=== PATIENT | female | born 1985 | race Caucasian/White ===

== ENCOUNTER 2024-12-12 10:45 | Observation (INO) ==
--- NOTE | 2024-11-29 12:11 | Anesthesiology Consultation ---
Date of Service November 29, 2024 Assessment & Plan Chart Review Chart Review: Acceptable Risk for Surgery and Patient NOT seen in Pre Admission Testing Consults Requested none History Surgery Operation Date: 12/12/24 12:00 Proposed Procedures p Left Knee Arthroscopy, Open Osteocohondral Allograft Transplant - Jose Cody MD Height/Weight Height: 5 ft 1 in Weight: 58.967 kg Allergies Allergy/AdvReac Type Severity Reaction Status Date / Time egg AdvReac Severe Gastrointestinal Verified 11/28/24 15:20 Upset gluten AdvReac Severe Gastrointestinal Verified 11/28/24 15:20 Upset lactase [From Dairy Aid] AdvReac Severe Gastrointestinal Verified 11/28/24 15:20 Upset Medications Home Medications Medication Instructions Recorded Confirmed Last Taken omeprazole 40 mg capsule,delayed 40 mg PO QA 02/10/24 11/28/24 Unknown release valacyclovir 500 mg tablet 500 mg PO QA 02/10/24 11/28/24 Unknown 5-hydroxytryptophan (5-HTP) 100 mg 100 mg PO [facility] [place] 11/28/24 11/28/24 Unknown capsule (5-HTP) berberine chloride 500 mg capsule 500 mg PO QA 11/28/24 11/28/24 Unknown calcium 500 mg 1 tab PO HS 11/28/24 11/28/24 Unknown (carb,gluconate)-magnesium 250 mg (gluc,oxide) tablet (Calcium Magnesium) elderberry fruit 350 mg capsule 350 mg PO 11/28/24 11/28/24 Unknown lactobacillus combination no.4 3 3,000 mmu cells PO QA 11/28/24 11/28/24 Unknown billion cell capsule (Probiotic) Past Medical History Medical History Hx of syncope had a positive tilt table test, was told to increase electrolyte intake and salt intake. had a f/u with a tank car repairer ~2017 in [place]. no further need to see and is doing well. History of COVID-19 Fall 2019: cold symptoms and chest congestion. no hospitalization, resolved. PONV (postoperative nausea and vomiting) Iron deficiency anemia chronic Anxiety controlled with OTC supplements Asthma exercise induced - rarely has an issue. Past Family History Family History (Updated 11/28/24 @ 15:30 by Sugey Hope RN) Mother Breast cancer Grandmother (Maternal) No problems noted. Uncle Colorectal cancer Family/Other Breast cancer Other No family history of adverse response to anesthesia Denies family history of Ovarian cancer Prostate cancer Myocardial infarction Uterine cancer Past Surgical History Surgical History History of esophagogastroduodenoscopy (EGD) History of colonoscopy S/P ACL surgery Left S/P x1 S/P cholecystectomy Social History Smoking Status: Former smoker Do You Dip or Chew Tobacco: No Smoking End Date: quit 11 years ago Hx Alcohol Use: Yes (Socially) Hx Substance Use: No substance use type: does not use
--- NOTE | 2024-12-06 11:14 | Communication Note ---
Date of Service: December 06, 2024 - Patient contacted PAT requesting reviewing medication instructions and adding lysine to list. This was updated in EMR. She was advised she needs to stop lysine, elderberry fruit, 5-HTP, berberine supplements now, cannot take probiotic morning of surgery and otherwise can continue medication as listed in chart. She verbalized understanding and denied additional questions or concerns.
[~2024-12-12 10:45] MED LIST: BUPIVACAINE 0.25% PF 30 ML VIAL ONE; BUPIVACAINE 0.5 % 5 MG/1 ML PF 10ML VIAL ONE; DEXAMETHASONE SOD INJ 4 MG/ML VIAL ONE; EPINEPHrine INJ 1 MG/ML AMP ONE
--- NOTE | 2024-12-12 11:20 | History & Physical Bridge Note ---
Date of Service December 12, 2024 History & Physical Bridge Note I have examined the patient, reviewed the History & Physical and in the interval since the performance of the History & Physical I have noted the following changes of clinical significance: no changes noted
[2024-12-12] MEDS: LACTATED RINGER'S 1,000 ML IV SCH ×2 (11:34→11:38)
[2024-12-12] MEDS ORDERED: ONDANSETRON INJ 2 MG/ML 2 ML VIAL ONE ×2 (11:54→16:54)
[2024-12-12] MEDS ORDERED: PROPOFOL IV EMULSION 10 MG/ML 20 ML VIAL IV ONE (11:54)
[2024-12-12] MEDS ORDERED: fentaNYL citrate PF 100 MCG/2 ML VIAL ONE ×3 (11:54→16:32)
[2024-12-12] MEDS ORDERED: LIDOCAINE 2% 2 ML VIAL/AMP(20MG/ML) INFIL ONE (11:54)
[2024-12-12] MEDS ORDERED: DEXAMETHASONE SOD INJ 4 MG/ML VIAL ONE (11:54)
[2024-12-12] MEDS ORDERED: MIDAZOLAM HCL 1 MG/ML 2ML VIAL ONE (11:55)
[2024-12-12] MEDS ORDERED: ONDANSETRON INJ 2 MG/ML 2 ML VIAL IV PRN ×2 (12:05→17:52)
[2024-12-12] MEDS ORDERED: PROMETHAZINE HCL 6.25 MG in SODIUM CHLORIDE 0.9% 50 ML IV PRN (12:05)
[2024-12-12] MEDS ORDERED: ATROPINE SULFATE 0.1 MG/ML 10ML SYR IV PRN ×2 (12:05→17:53)
[2024-12-12] MEDS ORDERED: fentaNYL citrate PF 100 MCG/2 ML VIAL IV PRN ×2 (12:05→17:52)
[2024-12-12] MEDS ORDERED: ePHEDrine sulfate 50 MG/ML AMP IV PRN (12:05)
[2024-12-12] MEDS: SCOPOLAMINE 1 MG/72 HR TDSY PATCH TD ONE ×2 (12:06)
[2024-12-12] MEDS: ceFAZolin 2000MG 2,000 MG/15 ML SYR IV SCH ×2 (13:32→23:19)
[2024-12-12] MEDS: TRANEXAMIC ACID / 0.7% NACL 1000MG/100ML BAG IV ONE (13:35)
[2024-12-12] MEDS ORDERED: KETAMINE HCL 10MG/ML SYR ONE (13:51)
[2024-12-12] MEDS ORDERED: ceFAZolin 330 MG/ML 1 GM VIAL ONE (15:44)
[2024-12-12] MEDS: ceFAZolin 2000MG 2,000 MG/15 ML SYR IV ONE (15:45)
[2024-12-12] MEDS: LIDOCAINE 1%/EPINEPHRINE 1:100,000 50 ML VIAL ONE (16:47)
[2024-12-12] MEDS: EpINEphrine HCL INJ 1 MG/ML 1ML SYRINGE IR ONE (16:48)
[2024-12-12] MEDS ORDERED: KETOROLAC 30 MG/ML VIAL ONE (16:54)
[2024-12-12] MEDS: ROPIVACAINE 0.5% 5 MG/ML 30 ML VIAL ONE (17:04)
[2024-12-12] MEDS ORDERED: oxyCODONE HCL IR 5 MG TAB (IMMEDIATE RELEASE) PO PRN (17:20)
[2024-12-12] MEDS ORDERED: NALOXONE HCL 0.4 MG/1 ML VIAL/CARP IV PRN (17:20)
[2024-12-12] MEDS ORDERED: ALUMINUM/MAGNESIUM SUSP 30 ML UDC PO PRN (17:20)
[2024-12-12] MEDS ORDERED: METOCLOPRAMIDE HCL INJ 5 MG/ML 2 ML VIAL IV PRN (17:20)
[2024-12-12] MEDS ORDERED: diphenhydrAMINE 50 MG/ML VIAL IV PRN (17:20)
[2024-12-12] MEDS ORDERED: MAGNESIUM HYDROXIDE SUSP 30 ML UDC PO PRN (17:20)
[2024-12-12] MEDS ORDERED: HYDROmorphone INJ 0.5 MG/0.5 ML SYR IV PRN (17:20)
[2024-12-12] MEDS ORDERED: bisacodyL 10 MG SUPP PR PRN (17:20)
--- NOTE | 2024-12-12 17:27 | Operative Report ---
Post Operative Report Pre & Post Diagnosis Operation Date: 12/12/24 12:40 Pre-Op Diagnosis: Left Knee Aneterior Cruciate Ligament graft tear, osteochondral lesion of the lateral femoral condyle, retained orthopedic hardware Post-Op Diagnosis: Left Knee Aneterior Cruciate Ligament graft tear, osteochondral lesion of the lateral femoral condyle, retained orthopedic hardware I identified the patient and participated in the time-out.: Yes Procedure Operation Date: 12/12/24 12:40 Actual Procedures p Left Knee Arthroscopy, Anterior Cruciate Ligament Reconstruction, with Bone Tendon Bone Autograft, Open Osteochondral Allograft Transplant, Hardware Removal(Left) 22 modifier should be added to the ACL CPT code due to the extra time and difficulty associated with a revision ACL surgery- Jose Cody MD Surgeon Jose Cody MD Strip Deburrer Dylan Quiroz DO, DJ Clark and Rangel Bryson PA-C. Estimated Blood Loss 50 Findings Consistent with Post-Op Diagnosis Specimens None Anesthesia Type General Regional Complications none Disposition Disposition: Recovery Room Indications 38-year-old female, injured her self playing dodgeball back in September 2024. She felt a pop in her knee. She has undergone a previous ACL reconstruction 25 years ago. X-ray and MRI were obtained. On the x-ray she had evidence of prior ACL reconstruction with a staple in her tibia. Femoral tunnel was located anterior superiorly and vertically. There was minimal tunnel widening measured at less than 12 mm. MRI was obtained. This showed an osteochondral lesion of the lateral femoral condyle. Her exam was notable for positive Rajinder's test and lateral joint line tenderness. I had a long discussion with her about her diagnosis and treatment options. She was a candidate for revision ACL reconstruction with bone patellar tendon bone autograft, and open osteochondral allograft transplant, and hardware removal. I reviewed all the risks and benefits of surgery, alternatives, and expected outcomes. She elected to proceed. All questions were answered. Informed consent was signed. Description of Procedure Patient was identified in the preoperative holding area where her surgical site was marked. She was given an adductor canal block by anesthesia then brought back to the operating room where she was placed on the operating room table and general anesthesia was administered. Exam under anesthesia was then performed. Patient's range of motion was approximately 3 to 120 degrees without manipulation. However with manipulation small pops could be felt and I was able to get her through a full range of motion 0 to 140 degrees. Rajinder's was positive grade 2B. She was stable to varus and valgus at 30 degrees. Negative posterior drawer test. She was then prepped and draped in the usual sterile fashion. Prior to incision a multidisciplinary timeout was called. All in the room were in agreement. I began by opening up her previous hamstring incision then extending the incision transversely to the lateral aspect of the tibial tubercle then proximally to the midpoint of the patella along the lateral border of the patellar tendon. I dissected down to subcutaneous tissues to the level of the fascia. [place] identified in the proximal tibia. This was dissected out with electrocautery. Combination of osteotomes were used to try to get around the stable. Staple was very securely fixed. Eventually I was able to get a vice peanut separator on the staple and tapped this out. Tibial tunnel exit was then visible. Next, #11 blade was used to make a anterolateral arthroscopic portal incision. Arthroscope was inserted in the suprapatellar pouch. Anterior medial portal was created under direct visualization. A diagnostic arthroscopy was performed revealing the below findings. 1. Suprapatellar pouch and medial lateral gutter showed some scar tissue consistent with her knee stiffness which was slightly bleeding secondary to release due to the manipulation under anesthesia. 2. Undersurface the patella was normal. 3. The trochlea was normal. 4. Medial femoral condyle was normal. 5. Notch showed the ACL to be torn with some resorption of the proximal aspect of the graft. Tibial stump of the graft was scarred to the anterior horn of the lateral meniscus. PCL was intact. 6. Medial compartment showed the medial meniscus to be intact. There was some calcific substances noted on the undersurface of the body of the medial meniscus as well as the free edge on the posterior horn. Grade I chondromalacia of the medial femoral condyle. Medial tibial plateau was normal. 7. Lateral compartment showed the lateral meniscus to be intact with some calcific surface attachments about 2 mm in the posterior horn of the lateral meniscus superior surface. Having completed our diagnostic arthroscopy I then introduced a meniscal biter which was used to dissect the scar tissue from the ACL off of the lateral meniscus anterior horn taking great care to not disturb the root attachment. The ACL remnant was then debrided with arthroscopic shaver. Small notchplasty was performed of the lateral wall. Electrocautery was used to remove soft tissue and visualize the old femoral tunnel. Intercondylar ridge was identified and I felt that I could place her femoral tunnel more anatomically away from her previous femoral tunnel without the tunnels converging. I then inserted a 2.4 mm guidewire up the tibial tunnel into the joint. This was clipped with a Wendy. I then hand reamed starting with an [address] re[address] the way up to a #11 reamer. Curette was used to remove soft tissue. The arthroscope was placed up into the tunnel and we confirmed that there was no longer any soft tissue. Plug was then placed in the tibial tunnel. Next, I harvested a bone patellar tendon bone autograft. The peritenon was split longitudinally in the midportion of the tendon and reflected medially and laterally to expose the medial and lateral edges of the tendon. A 10 mm wide strip of central portion of patellar tendon was harvested with a #10 blade. The knee was then brought into full extension. Bone blocks were taken off the patella and tibial tubercle and the graft was prepared on the back table. It sized to a 9 mm graft on the femoral side and an 11 mm graft on the tibial side. BTB tight rope was attached to the femoral side. 18-gauge wire was placed on the tibial bone block. Graft was covered with a wet sponge. Next, the arthroscope was moved to the anterior medial portal. Femoral drill guide was placed through the anterolateral portal. Small stab incision was made on the anterior lateral aspect of the distal femur to allow the guide to come down on the bone. I set the guide at 120 degrees. Guidepin was then drilled down into the knee. I had to make a slight adjustment to the guidepin in order to optimize his position and avoid her previous femoral tunnel. Once this was completed metal guide sleeve was tapped down and the 2.4 guidewire was removed. The Arthrex flip cutter 3 was opened up and drilled down into the knee. This was opened and 9 mm. I then retrodrilled to a depth of approximately 20 mm. I was very happy with her tunnel position which avoided her previous tunnel as planned. A fiber snare was then placed down into the knee. This was grasped out through the tibial tunnel to use for graft passage. Next, the BTB autograft was brought up onto the surgical field. The fiber snare was used to pass the BTB tight rope. The Endobutton was secured on the lateral cortex of the femur. Once this was complete, we pulled on the tight rope sutures to advance the femoral bone block up into the femoral tunnel. Excellent fixation was obtained. Next, the knee was placed in full hyperextension. Then a wire was placed along the bone block side of the graft. I dilated up to a size 10 mm screw. 10 mm x 28 mm Arthrex peek interference screw was then placed on the bone side of the graft. Excellent fixation was obtained. The arthroscope was placed back into the knee. Knee was brought through full range of motion and there was no impingement of the graft on the intercondylar notch. I was happy with the tension on the graft. Arthroscopic images were obtained and the arthroscope was then removed from the joint. Next, we turned our attention to the open osteochondral allograft transplant. The lateral portal incision was extended through the fascia along the lateral side of the patellar tendon taking great care to avoid the underlying lateral femoral condyle and the anterior horn of the lateral meniscus. We carried the incision along the inferior lateral border of the patella for distance of approximately 1 cm. This allowed good visualization of lateral femoral condyle once the retractors were placed. The osteochondral lesion of the lateral femoral condyle was visualized. A size 15 mm diameter sizer at the appropriate coverage of the area of abnormal cartilage. There was some depression of the condyle along both medial and lateral margins so was not perfectly rounded. The sizer was centered on the lesion then the guide wire was drilled. I scored the cartilage with a 15 mm scoring device. I then drilled to a depth of approximately 9 mm. We took our measurements off of the dilator. These were 9 mm anteriorly and posteriorly and 7.5 mm medially and laterally. These were recorded on the back table. Our osteochondral allograft Ozzie condyle had been opened up at the beginning of the case in order to thaw and was now ready to be prepared. On the back table was secured using the Arthrex [place] o[place] graft cannon. The size 15 mm guide was used to find an appropriate position on the allograft Ozzie condyle. The guide was then tightened down. Coring reamer was then drilled to a depth of approximately 12 to 13 mm. Saw was then used to free the allograft up. Once this was complete we made our martinez on the bony side of the allograft. A saw was used to cut the allograft plug to size. The graft was then diluted along its edges. It was then irrigated with pulse lavage to remove any bone marrow elements. We re-measured the size of our allograft plug and we were happy with it. We then brought the allograft plug up onto the surgical field. The recipient site was irrigated out with copious amounts normal saline then dried. The allograft plug was then tamped down into position. Graft was slightly prominent along the medial lateral sides but this was less than 1.5 mm which was acceptable. We had a perfectly flush surface anteriorly and posteriorly which I was very happy with. The knee was brought through full range of motion there was no catching or impingement of the graft. At this point the near was irrigated out with a pulse lavage. The arthrotomy was closed using a 0 Vicryl suture. Bone graft was packed into the patella using a bone tamp. Skin was then closed using 3-0 Vicryl sutures in the deep dermis and 3-0 Monocryl in the skin. Steri-Strips and Dermabond were applied. 30 cc of half percent Naropin was injected throughout the wounds for postoperative pain control. Sterile dressings were applied. Patient was then awoke from anesthesia and transferred recovery room in stable condition. Postoperative course: Patient will be admitted to the hospital overnight for pain control and to receive perioperative IV antibiotics. She will work with physical therapy tomorrow. We will encourage immediate full range of motion. She is nonweightbearing for the next 6 weeks on crutches. Aspirin for DVT prophylaxis. I attest to the content of the Intraoperative Record and any orders documented therein. Any exceptions are noted below.
--- NOTE | 2024-12-12 17:36 | Operative Report ---
Post Operative Report Pre & Post Diagnosis Operation Date: 12/12/24 12:40 Pre-Op Diagnosis: Left Knee Aneterior Cruciate Ligament Sprain Post-Op Diagnosis: Left Knee Aneterior Cruciate Ligament Sprain I identified the patient and participated in the time-out.: Yes Procedure Operation Date: 12/12/24 12:40 Actual Procedures p Left Knee Arthroscopy, Anterior Cruciate Ligament Reconstruction, with Bone Tendon Bone Autograft, Open Osteochondral Allograft Transplant, Hardware Removal(Left) - Jose Cody MD Surgeon Jose Cody MD Oriental Rug Repairer Dylan Quiroz DO, WYATT Hardy and Rangel Bryson PA-C. Estimated Blood Loss 50 Findings Consistent with Post-Op Diagnosis Specimens None Description of Procedure Patient was brought to the operative suite where she underwent anesthesia. The left knee was examined under anesthesia. The left lower extremity was prepped and draped in usual sterile fashion. A surgical timeout was performed. The patient underwent a left knee arthroscopy with revision anterior cruciate ligament reconstruction utilizing bone patellar tendon bone autograft, arthrotomy with lateral femoral condyle osteochondral allograft transplant, hardware removal. Please see Dr. Cody's operative report for full details. I was present and assisted with patient positioning, limb positioning, soft tissue retraction, hemostasis, hardware removal, anterior cruciate ligament reconstruction, osteochondral allograft transplant, wound closure, postoperative dressing placement. The patient was taken to the recovery room in stable condition. I attest to the content of the Intraoperative Record and any orders documented therein. Any exceptions are noted below.
[2024-12-12] MEDS: PROMETHAZINE HCL 6.25 MG in SODIUM CHLORIDE 0.9% 50 ML IV PRN (17:37)
--- NOTE | 2024-12-12 17:50 | XRay Report ---
Clinical History: Postoperative examination 2 views of the left knee are submitted for review. Comparison is made with the prior examination dated 10/24/2024 Findings: Air is seen within the joint space, consistent with recent surgery. Postsurgical changes are seen of anterior cruciate ligament reconstruction. There is a metallic plate along the lateral aspect of the distal femoral metaphysis that is not contacting the bone. There is an unchanged suspected subacute or old fracture of the lateral tibial plateau No subluxation or dislocation is seen. No significant arthritic changes are noted. No other osseous abnormality is identified. There are no radiopaque foreign bodies. Impression: Apparent ACL reconstruction. There is a metallic plate lateral to the distal femoral metaphysis that is not attached to the bone. Clinical correlation is recommended as to whether this is satisfactory Electronically signed by John Moulton 12-12-2024 5:50 PM
[2024-12-12] MEDS: DROPERIDOL 5 MG/2 ML VIAL IV STA (17:55)
[2024-12-12] MEDS: PROMETHAZINE HCL INJ 25 MG/ML 1 ML VIAL ONE (17:59)
[2024-12-12] MEDS: DROPERIDOL 5 MG/2 ML VIAL ONE (18:03)
--- NOTE | 2024-12-12 18:12 | Anesthesiology Progress Note ---
Date of Service December 12, 2024 Anesthesia Post Procedure Vital Signs Vital Signs: Temp Pulse Pulse Resp BP Pulse Ox O2 Del Method 12/12/24 18:00 88 18 97/58 L 100 Room Air 12/12/24 17:50 84 18 112/63 100 Room Air 12/12/24 17:40 84 16 104/57 L 100 Oxymask 12/12/24 17:30 36.4 C L 92 H 16 108/63 100 Oxymask 12/12/24 11:20 36.9 C 98 H 20 129/93 99 Room Air O2 Flow Rate 12/12/24 18:00 12/12/24 17:50 12/12/24 17:40 3 12/12/24 17:30 6 12/12/24 11:20 Transfer of Care Handoff Completed per policy Notes Mental Status: alert / awake / arousable Patient Amnestic to Procedure: Yes Nausea / Vomiting: improving with treatment Pain: adequately controlled Airway Patency, RR, SpO2: stable & adequate BP & HR: stable & adequate Hydration State: stable & adequate Anesthetic Complications: no major complications apparent
[2024-12-12] MEDS ORDERED: KETOROLAC TROMETHAMINE 15 MG/ML VIAL IV SCH (20:30)
[2024-12-12] MEDS: ASPIRIN 81 MG ECTAB PO SCH (20:53)
[2024-12-12] MEDS: SENNA 8.6 MG TAB PO SCH (20:54)
[2024-12-12] MEDS: DOCUSATE SODIUM 100 MG CAP PO SCH (20:54)
[2024-12-12] MEDS: ACETAMINOPHEN 500 MG TAB PO SCH (21:04)
[2024-12-12] MEDS: KETOROLAC TROMETHAMINE 15 MG/ML VIAL IV SCH (23:19)
[2024-12-13] MEDS: CHECK SCOPOLAMINE PATCH PLACEMENT SCH
[2024-12-13] MEDS: dexAMETHasone 4 MG TAB PO SCH (07:07)
[2024-12-13] MEDS: CeleBREX 200 MG CAP PO SCH (07:07)
[2024-12-13] MEDS: PANTOprazole 40 MG TAB PO SCH (07:08)
[2024-12-13] MEDS: MULTIVITAMIN TAB PO SCH (07:08)
[2024-12-13 07:58] VITALS: RESP 18; O2SAT 98
[2024-12-13] MEDS: ONDANSETRON INJ 2 MG/ML 2 ML VIAL IV PRN (09:30)
--- NOTE | 2024-12-13 10:29 | Orthopedic Progress Note ---
Date of Service December 13, 2024 Assessment & Plan (1) S/P ACL reconstruction: Plan: Nonweightbearing on left lower extremity with assistance of walker or crutches Work on active and passive range of motion to prevent stiffness Pain control with p.o. medication Nausea and vomiting prevention with Zofran DVT prophylaxis with aspirin and JENNIFER stockings Keep postoperative dressing in place PT/OT Ice with easy wrap Outpatient physical therapy in our PT clinic (You may come directly to our clinic for your initial PT evaluation upon discharge from the hospital today) Follow-up with [facility] orthopedics as previously scheduled With questions contact our clinic at [phone] Admission and Anticipated Discharge Date Admission Date: December 12, 2024 Subjective This 38-year-old female is day 1 status post left knee ACL reconstruction with bone patellar tendon bone autograft, as well as left lateral femoral condyle OATs procedure. Patient states her pain is fairly well controlled with the p.o. pain medication. She states she does have some nausea and has not been able to eat since admission. Currently she denies chest pain, shortness of breath, fever, chills, sweats, nausea, vomiting, diarrhea or difficulty voiding. She states that she does have a numb sensation over the medial aspect of her left lower leg. Review of Systems Review of Systems: All systems reviewed & are unremarkable except as noted in Subjective Physical Exam Physical Exam: Left knee: Outer dressing was removed. Postoperative dressing is clean dry intact left in place. Patient is able to perform active straight leg raise test. She is able to actively dorsi and plantarflex her foot. She is able to detect light sensation to touch over the pads of all digits. She does have a numb sensation with palpation over the anteromedial aspect of her lower leg. Her quad strength is 3+ out of 5. Patient is able to reach terminal extension at her knee but flexion is limited to about 35 degrees actively. Results & Data Vital Signs (Past 12 Hours) Vital Signs Temp Pulse Resp BP Pulse Ox O2 Del Method 12/13/24 07:55 36.8 C 82 18 95/58 L 98 Room Air 12/13/24 05:51 100/60 99 Room Air 12/13/24 02:45 36.4 C L 58 L 16 91/54 L 100 Room Air 12/12/24 22:39 36.3 C L 56 L 16 98/61 L 98 Room Air Diagnostic Findings Laboratory Results POC Ur Test NEG (NEG) 12/12/24 11:05 Impressions Knee X-Ray 12/12/24 17:20 Clinical History: Postoperative examination 2 views of the left knee are submitted for review. Comparison is made with the prior examination dated 10/24/2024 Findings: Air is seen within the joint space, consistent with recent surgery. Postsurgical changes are seen of anterior cruciate ligament reconstruction. There is a metallic plate along the lateral aspect of the distal femoral metaphysis that is not contacting the bone. There is an unchanged suspected subacute or old fracture of the lateral tibial plateau No subluxation or dislocation is seen. No significant arthritic changes are noted. No other osseous abnormality is identified. There are no radiopaque foreign bodies. Impression: Apparent ACL reconstruction. There is a metallic plate lateral to the distal femoral metaphysis that is not attached to the bone. Clinical correlation is recommended as to whether this is satisfactory Electronically signed by John Moulton 12-12-2024 5:50 PM
--- NOTE | 2024-12-13 10:41 | Discharge Summary ---
Date of Service December 13, 2024 Admission HPI Per Admitting Provider History of Present Illness (including history relevant to procedure): This 38-year-old female presents today with her , for her preoperative history and physical. She is scheduled to undergo a left knee arthroscopy, open osteochondral allograft transplant, and ACL reconstruction using bone tendon bone autograft on 12/12/[address] Cody. The patient injured herself while playing dodgeball in school on 09/20/2024. She pivoted on her knee and felt a pop and immediate onset of pain. Swelling developed. She was seen in the ED and referred here for further care. She has a history of previous left knee ACL reconstruction 25 years ago. She notes loss of motion. No numbness or tingling. At times the knee feels unstable. X-ray and MRI imaging has been obtained. She elects to proceed with surgical intervention in hopes of improving her pain and function. Admission Exam Per Admitting Provider Physical Exam: (relevant to the procedure, including heart and lung evaluation) General: Well-developed, well-nourished, young female, in no acute distress. Sitting in a chair. Alert and oriented. HEENT: Normocephalic, atraumatic. Eyes PERRLA, EOMI. Nares patent bilaterally without nasal drainage. Oropharynx with moist oral mucosa. Good dentition. Neck: No JVD Cardiac: RRR. No MGR. Peripheral pulses are 2+. Lungs: Clear to auscultation bilaterally. No crackles, rhonchi, or wheezing. Good air movement. Abdomen: Bowel sounds present x 4. Soft nontender. No organomegaly. No masses. Extremities: Left knee evaluation reveals no intra-articular effusion. She flexes to 94 degrees. Nearly full terminal extension. She may lack 2 to 3 degrees. Strength is 5/5 with good quad tone. Ambulating today with a normal gait. Stable collateral ligaments. Positive Rajinder. She has focal discomfort with palpation over the lateral joint line. No discomfort or defect with palpation of the patellar tendon or quadriceps tendon. Kenny testing was not attempted. Neuro: Gross sensation is intact across the left leg by soft touch. Skin: Warm dry with good turgor. No rashes. No ecchymosis or erythema. Tat toos are present. 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 Postoperative dressing is clean dry intact left in place. Patient is able to perform active straight leg raise test. She is able to actively dorsi and plantarflex her foot. She is able to detect light sensation to touch over the pads of all digits. She does have a numb sensation with palpation over the anteromedial aspect of her lower leg. Her quad strength is 3+ out of 5. Patient is able to reach terminal extension at her knee but flexion is limited to about 35 degrees actively. Discharge Data Allergies Allergy/AdvReac Type Severity Reaction Status Date / Time egg AdvReac Severe Gastrointestinal Verified 12/12/24 11:04 Upset gluten AdvReac Severe Gastrointestinal Verified 12/12/24 11:04 Upset lactase [From Dairy Aid] AdvReac Severe Gastrointestinal Verified 12/12/24 11:04 Upset Procedures Performed Operation Date: 12/12/24 12:40 Actual Procedures p Left Knee Arthroscopy, Anterior Cruciate Ligament Reconstruction, with Bone Tendon Bone Autograft, Open Osteochondral Allograft Transplant, Hardware Removal(Left) - Jose Cody MD Ordered Studies 12/12/24 12:53 US - OR guided needle placemen Routine Hospital Course (1) S/P ACL reconstruction: Patient had a full overnight stay following left knee ACL reconstruction and OATs procedure. Will discharge her home today. She will be coming to our PT clinic before going home upon discharge from the hospital. She understands that she with nonweightbearing for at least the next 6 weeks. She does not need a brace and needs to work on active and passive range of motion of her knee to prevent stiffness. Nonweightbearing on left lower extremity with assistance of walker or crutches Work on active and passive range of motion to prevent stiffness Pain control with p.o. medication Nausea and vomiting prevention with Zofran DVT prophylaxis with aspirin and JENNIFER stockings Keep postoperative dressing in place PT/OT Ice with easy wrap Outpatient physical therapy in our PT clinic (You may come directly to our clinic for your initial PT evaluation upon discharge from the hospital today) Follow-up with [facility] orthopedics as previously scheduled With questions contact our clinic at [phone] Total Time Total Time Spent Total Time Spent (In Minutes): 25 mins Discharge Plan Discharge Items Patient Disposition: Home - Self-Care Reason For Visit: Left Knee Aneterior Cruciate Ligament Sprain Discharge Diagnosis: s/p left knee ACL reconstruction;OATs procedure Activity: As commented below Lifting: None Bathing: Keep incision dry Bathing Comment: may shower later today Sexual Activity: Wait until after follow-up appointment Exercise/Sports: Wait until after follow-up appointment Driving/Machine Use: No driving until cleared by accounts payable specialist Weightbearing: Left non-weightbearing Weightbearing Comment: with crutch assistance Non-emergency contact: Surgeon Call non-emergency contact if: you have any medication questions, your pain is not controlled, your temperature is above 101.5, your wound has increased drainage and your wound pain has increased Follow-up/Referrals: Ange Montoya MD [Primary Care Provider] - Diet: Regular Addtl Attending Provider Instructions: Post-operative Instructions Dear Patient and Family/Friends, Before you are discharged from the hospital, it is important to know what to expect when you get home after surgery. To that end, we have created this sheet of discharge instructions which covers many commonly asked questions. Make sure you go through this sheet in its entirety with your nurse before you are discharged. Please note that we will go over the specifics of your surgery and recovery when you return for your first post-operative visit. Sincerely, Dr. Cody Medications 1. Oxycodone 5 mg: Take 1-2 tabs every 4-6 hours as needed for pain control. This was prescribed at your Preop appt. 2. Diclofenac sodium 75 mg: Take 1 tab twice daily for 30 days postoperatively for pain and inflammation relief. This medication was previously prescrbed at your preop appt. 3. Aspirin 81 mg: Take 1 tab twice daily for 30 days postoperatively for blood clot prevention. Please purchase this medication. 4. Zofran 4 mg: Take 1 tab every 8 hours as needed for postoperative nausea relief. This was also previously prescribed. 5. Extra strength Tylenol 500 mg: Take 2 tabs every 6-8 hours as needed for additional pain relief. Please purchase this medication. Pain Expect to be in a fair amount of pain after surgery. Remember, our goal is not to eliminate your pain, but to make it tolerable. It is a good idea to stay ahead of your pain by taking the medications you were prescribed once you get ho me. Typically, the pain starts improving 3-7 days after surgery. You should start weaning off the narcotic pain medication (oxycodone, hydrocodone, hydromorphone, morphine) as soon as your pain improves. Please call our office if your pain is not adequately controlled. Ice Ice your operative site at least 5 times a day for 15-30 minutes at a time. Make sure you have a thin cloth between the ice or cooling unit and your skin to prevent soares bite. This is especially important if you received a nerve block. Continue icing your operative site for the first 5-7 days after surgery, then as needed. Diet/Nausea/Vomiting Start by drinking clear liquids and eating crackers. If you can tolerate this, then you may resume your normal diet. If you feel nauseated or vomit, take Zofran/ondansetron (if prescribed). Please call our office if you have intractable nausea or vomiting, or, if after hours, you may go to the Emergency Room for help. Constipation Constipation is a common side effect of narcotic pain medication. If you have not had a bowel movement within 2 days after surgery, we recommend purchasing an over the counter laxative such as Milk of Magnesia, Dulcolax, or Miralax from a local pharmacy, and taking it as instructed. Call our clinic if any questions. Nerve block The anesthesia team sometimes places a nerve block to help with post-operative pain control. This results in significant numbness and inability to move the extremity. The nerve block usually wears off in 8-12 hours, but sometimes can last up to 24 hours. Please call our office if you are still unable to move your extremity after 24 hours, unless you received a pain pump to take home. Nerve blocks typically wear off quickly, so start taking pain medication as soon as you start feeling soreness near your surgical site. Weight bearing and Range of Motion. Do not bear any weight through your operative extremity immediately after surgery. If you had upper extremity surgery, do not lift anything with that arm. If you are in a knee brace, keep it locked in place until your follow-up. We will discuss your weight bearing, range of motion, and lifting restrictions in detail at your first post-operative appointment. Continuous Passive Motion (CPM) Machine If you were prescribed a CPM machine, it will start after your first post- operative appointment, at which time we will give you instructions on the range of motion settings and duration of treatment Physical therapy You will be given a prescription for physical therapy or occupational therapy at your first post-operative appointment. Typically, patients start therapy within 1 week of surgery Wound care and showering We will inspect your wound at your first post-operative visit, and may do a dressing change at that time. Most patients will be in a water-proof dressing that is removed 14 days after surgery. It is normal to see some dried blood on the dressing. Do not remove your dressing, paper strips or sutures yourself unless you are given permission. Showering is allowed the day after surgery. Do not scrub or remove any dressings. The wound should not be submerged underwater (i.e. in a bathtub or pool) until 4 weeks after surgery JENNIFER stockings If you were given white stockings, these are to be worn at all times except to shower (on both legs) for the first 2 weeks after surgery. Driving You may not drive while taking narcotic pain medication or while in a cast, splint, sling or brace. You, the patient, need to make the final determination about when you are safe to drive, however, the earliest you may consider driving after surgery is below: Hand/Wrist/Elbow Surgery: 3 days Shoulder Surgery: 2 weeks Hip,/Knee/Ankle Surgery: 4 weeks Fracture repair: 6 weeks Return to Work Your return to work depends on what surgery was done and what type of work you do. Please bring any paperwork your employer needs completed to your first post-operative visit. Also, bring a description of your job duties, as this helps us to understand what risks you may face at work. Travel Avoid long distance travel (greater than 1 hour) in airplanes and cars for the first 6 weeks after surgery. If you must travel, you need to have a Doppler ultrasound done before you travel to rule out a blood clot in your legs. Follow-up You should have a follow-up appointment already scheduled 1-2 days after surgery. If not, please contact our office to make this appointment before you leave the hospital. When to call the office It is normal to have swelling and bruising in the limb that was operated on. This will improve with time. It is also normal to have fevers for the first 2 days after surgery. Reasons you should call your doctor include: Uncontrolled pain; Nausea, vomiting, or constipation that does not improve with medication; Fevers over 101.5, chills, sweats; Drainage or bleeding from the wound; Foul odor; Spreading areas of redness; Any other concerns. Contact Information Please call Dr. Cody's office at [phone] with any concerns. Pending Studies at Discharge: No Stand-Alone Forms: My [facility] Medications and DC Order Prescriptions: Continued valacyclovir 500 mg tablet 500 mg PO QAM omeprazole 40 mg capsule,delayed release(DR/EC) 40 mg PO QAM 5-hydroxytryptophan (5-HTP) [5-HTP] 100 mg Capsule 100 mg PO QAM Probiotic 3 billion cell Capsule 3,000 mmu cells PO QAM Rx Instructions: administer with a meal Calcium Magnesium 500 mg calcium- 250 mg Tablet 1 tab PO HS elderberry fruit 350 mg Capsule 350 mg PO HS berberine chloride 500 mg Capsule 500 mg PO QAM Discharge Orders: Discharge Order (Routine); Ordered 12/13/24 Ordered By: Mauro Hardy Admission Data Admit Date/Time: 12/12/24 17:20 Attending Provider: Jose Cody Admit Provider: Jose Cody Primary Care Provider: Ange oMntoya
[2024-12-13 10:47] VITALS: BP 95/61; PULSE 89; TEMP 98.4
== END 2024-12-13 13:00 | disposition home or self-care (01) ==
LOC: ASU 10:45 → 3N 10:45